=== PATIENT | female | born 2000 | race Caucasian/White ===

== ENCOUNTER 2023-12-05 00:09 | Inpatient (IN) | payer OTHER, SELFPAY ==
[2023-12-05] VITALS (12 sets, daily range): BP systolic 93–117; BP diastolic 40–60; PULSE 57–100; RESP 16–20; TEMP 36.2–37.2; O2SAT 97–100; BMI 24.0; BMI 25.5
--- NOTE | ~2023-12-05 | CT_ITS ---
EXAMINATION: CT ABDOMEN AND PELVIS WITH CONTRAST CLINICAL INFORMATION: Right lower quadrant pain. COMPARISON: None available. TECHNIQUE: Multidetector volumetric images were obtained from the superior aspect of the liver through the pubic symphysis following administration 85 mL of Omnipaque 350 intravenous contrast. Sagittal and coronal reformatted images were obtained on the technologist's workstation. Oral contrast: No This CT examination was performed using dose optimization techniques as appropriate, variously including the following: *Automated exposure control *Adjustment of mA and/or kV according to patient size (this includes techniques or standardized protocols for targeted exams where dose is matched to indication/reason for exam; i.e. extremities or head) *Use of iterative reconstruction technique DLP: 346.33 mGy-cm FINDINGS: LUNG BASES: The visualized lung bases are unremarkable. LIVER, GALLBLADDER, AND BILIARY TREE: The liver is normal in size, shape, and attenuation. No focal hepatic lesion or biliary ductal dilatation is present. The gallbladder is unremarkable with no evidence of radiopaque gallstones, gallbladder wall thickening, or obvious pericholecystic inflammatory changes. PANCREAS: Unremarkable. SPLEEN: Unremarkable. ADRENAL GLANDS: Unremarkable. KIDNEYS AND URETERS: The kidneys are normal in size, shape, and attenuation. No hydronephrosis, hydroureter, or calculi seen. No perinephric stranding. BLADDER: Unremarkable. GASTROINTESTINAL TRACT: The small and large bowel are unremarkable. There is a dilated thickened retrocecal appendix measuring up to 9 mm with mild surrounding infiltration. ABDOMINAL WALL: No significant hernia is appreciated. LYMPH NODES: Normal. VASCULAR: Unremarkable. PELVIC VISCERA: The uterus and adnexal regions are within normal limits. There is a small amount of free fluid within the pelvis. OSSEOUS STRUCTURES: Unremarkable. CT/CT abdomen pelvis w IV con IMPRESSION: Acute appendicitis. Small amount of free fluid within the pelvis. Fleischner guidelines were followed.
[2023-12-05 00:40] LABS: MANUAL DIFF FLAG NO
[2023-12-05 00:42] LABS: Basophils Absolute Auto 0.1 X10*3/uL (0.0-0.2); Basophils Percent Auto 0.3 % (0-2); Eosinophils Percent Auto 0.1 % (0-4); Hemoglobin 14.5 g/dl (12.0-16.0); Imm Gran Abs Auto 0.05 X10*3/uL (0.00-0.03); Imm Gran Pct Auto 0.3 % (0.0-0.4); Lymphocytes Absolute Auto 1.5 X10*3/uL (1.2-4.9); Lymphocytes Percent Auto 8.4 % (20-40); Mean Corpuscular HGB Conc 35.4 g/dl (31.0-35.0); Mean Corpuscular Hemoglobin 30.8 pg (27.0-33.0); Mean Platelet Volume 10.7 fL (9.4-12.3); Monocytes Percent Auto 5.2 % (2-11); Neutrophils Absolute Auto 15.6 x10*3/uL (2.0-8.3); Neutrophils Percent Auto 85.7 % (45-73); Platelet Count 303 X10*3/uL (160-400); Red Blood Count 4.71 X10*6/uL (4.20-5.50); Red Cell Distribution Width 12.3 % (11.0-16.0); White Blood Count 18.2 X10*3/uL (4.8-10.8)
[2023-12-05 01:01] LABS: Alanine Aminotransferase 11 U/L (0-31); Albumin Level 4.2 g/dL (3.5-5.0); Alkaline Phosphatase 58 U/L (39-117); Anion Gap 16 (12-20); Aspartate Amino Transferase 17 U/L (5-31); Bilirubin Direct 0.2 mg/dL (0.0-0.5); Bilirubin Total 0.6 mg/dL (0.0-1.0); Blood Urea Nitrogen 9 mg/dL (9-16); Calcium 9.9 mg/dL (8.4-10.2); Carbon Dioxide 20 mmol/L (22-29); Chloride 106 mmol/L (96-108); Creatinine Clr Calc Pharmacy 90.1; Estimated Glomerular Filt Rate > 60; Glucose Random 145 mg/dL (60-115); HCG Quantitative 3 mIU/mL; Lipase 19 U/L (8-78); Sodium 138 mmol/L (135-145); Total Protein 7.5 g/dL (6.5-8.0)
--- NOTE | 2023-12-05 01:06 | ED_ITS ---
HPI - Abdominal Pain General Chief Complaint: Abdominal Pain Stated Complaint: appendisitis? Time Seen by Provider: 12/05/23 01:01 Source: patient Mode of arrival: ambulatory Limitations: no limitations History of Present Illness HPI narrative: Patient comes to the emergency room complaining of right lower quadrant pain, nausea and vomiting for 8 hours. Patient denies fever chills. Related Data Allergies Allergy/AdvReac Type Severity Reaction Status Date / Time No Known Allergies Allergy Verified 12/05/23 00:33 Review of Systems Review of Systems Constitutional : No Weight loss, No Fever, No Chills, No Night Sweats, No Fatigue, No Malaise ENT/Mouth : No Hearing loss, No Ear Pain, No Nasal Congestion, No Sinus Pain, No Hoarseness, No sore throat, No Rhinorrhea, No Swallowing Difficulty Eyes: No Eye Pain, No Swelling, No Redness, No Foreign Body, No Discharge, No Vision Changes Cardiovascular : No Chest Pain, No SOB, No Dyspnea on Exertion, No Orthopnea, No Edema, No Palpitations Respiratory : No Cough, No Sputum, No Wheezing, No Smoke Exposure, No Dyspnea Gastrointestinal : Complaining of nausea, vomiting, no diarrhea or constipation, complaining of right lower quadrant pain Genitourinary : no irregular bleeding, No Dysuria, No Urinary Frequency, No Hematuria, No Urinary Incontinence, No Urgency, No Flank Pain, No Urinary Flow Changes, No Hesitancy Musculoskeletal : No joint pain, No Myalgias, No Joint Swelling Skin : No Skin Lesions, No rash Neuro : No Weakness, No Numbness, No Paresthesias, No Loss of Consciousness, No Dizziness, No Headache Psych : No Anxiety/Panic, No Depression, No SI/HI/AH/VH, No Social Issues, Heme/Lymph: No Bruising, No Bleeding,No Lymphadenopathy Endocrine : No Polyuria, No Polydipsia, No Temperature Intolerance [facility] Social History Social History Advance Directives: No Advance Directives Information Provided: No Do you have a plan to hurt others: No Plan Physical Exam ED Vital Signs: Vital Signs - 24 hr 12/05/23 00:31 12/05/23 02:57 Temperature 97.8 F 98.6 F Pulse Rate 100 79 Respiratory Rate 18 16 Blood Pressure 117/47 L 106/44 L Pulse Oximetry 100 100 Oxygen Delivery Method Room Air Room Air BMI result Body Mass Index 24.0 Const Other: Appearance: Alert. Oriented X3. No acute distress. Eyes: Pupils equal, round and reactive to light. ENT: Pharynx normal. Neck: Normal inspection. Neck supple. No lymph nodes noted. No crepitus CVS: Normal heart rate and rhythm. Pulses normal. Normal S1 and S2 Respiratory: No respiratory distress. Breath sounds normal. No Wheezing. No rales Abdomen: Complaining of right lower quadrant pain and periumbilical pain with palpation, no rebound or guarding Skin: Skin warm and dry. Normal skin color. Normal skin turgor. Extremities: No lower extremity edema. No Lacerations. No Rash Neuro: Oriented X 3. No motor deficit. No sensory deficit. Moving all extremities. No slurred speech. CN 2 through 12 grossly intact Psych: calm, cooperative, normal affect Course Course Course Narrative: -patient receiving IV fluids, ketorolac and Zofran IV, CT scan pending, urinalysis pending Medical Decision Making Medical Decision Making MDM Narrative: -my interpretation of hematology, white blood cell count 18.2., chemistry within normal limits, LFTs within normal limits, lipase 19, beta hCG 3 -my interpretation of CT, fecalith present in appendix, likely appendicitis CT report: confirmed acute appendicitis I dicussed with Dr. Luque, pt being admitted Differential Diagnosis Differential Diagnoses: The differential diagnosis associated with the presentation includes (Appendicitis, ovarian cyst, ovarian torsion) Admission/Observation Consideration of admission/observation: Escalation of care including admission/observation considered Consult Healthcare Provider Management of the patient was discussed with: Hosiery Mender Lab Data [facility] Lab Attestation statement: I reviewed the patient's lab results. 12/05/23 00:36 12/05/23 00:36 Labs: Lab Results 12/05/23 12/05/23 Range/Units 00:36 02:53 WBC 18.2 H (4.8-10.8) X10*3/uL RBC 4.71 (4.20-5.50) X10*6/uL Hgb 14.5 (12.0-16.0) g/dl Hct 41.0 (37.0-47.0) % MCV 87.0 (80.0-98.0) fL MCH 30.8 (27.0-33.0) pg MCHC 35.4 H (31.0-35.0) g/dl RDW 12.3 (11.0-16.0) % Plt Count 303 (160-400) X10*3/uL MPV 10.7 (9.4-12.3) fL Immature Gran % (Auto) 0.3 (0.0-0.4) % Neut % (Auto) 85.7 H (45-73) % Lymph % (Auto) 8.4 L (20-40) % [place] % (Auto) 5.2 (2-11) % Eos % (Auto) 0.1 (0-4) % Baso % (Auto) 0.3 (0-2) % Lymph # (Auto) 1.5 (1.2-4.9) X10*3/uL [place] # (Auto) 1.0 (0.1-1.2) X10*3/uL Eos # (Auto) 0.0 (0.0-0.4) X10*3/uL Baso # (Auto) 0.1 (0.0-0.2) X10*3/uL Abs Immat Gran (auto) 0.05 H (0.00-0.03) X10*3/uL Absolute Neuts (auto) 15.6 H (2.0-8.3) x10*3/uL Absolute Nucleated RBC 0.000 (0.0-0.012) X10*3/uL Nucleated RBC % (auto) 0.0 (0.0-0.2) /100WBC Sodium 138 (135-145) mmol/L Potassium 4.0 (3.3-5.1) mmol/L Chloride 106 (96-108) mmol/L Carbon Dioxide 20 L (22-29) mmol/L Anion Gap 16 (12-20) BUN 9 (9-16) mg/dL Creatinine 0.74 (0.5-1.4) mg/dL Estim Creat Clear Calc 90.1 Estimated GFR > 60 Random Glucose 145 H (60-115) mg/dL Calcium 9.9 (8.4-10.2) mg/dL Total Bilirubin 0.6 (0.0-1.0) mg/dL Direct Bilirubin 0.2 (0.0-0.5) mg/dL AST 17 (5-31) U/L ALT 11 (0-31) U/L Alkaline Phosphatase 58 (39-117) U/L Total Protein 7.5 (6.5-8.0) g/dL Albumin 4.2 (3.5-5.0) g/dL Lipase 19 (8-78) U/L Beta HCG, Quant 3 mIU/mL Urine Color Yellow Urine Appearance Clear Urine pH >= 9.0 (5.0-9.0) Ur Specific [place] >= 1.030 H (1.005-1.025) Urine Protein Negative (Neg-Trace) mg/dL Urine Glucose (UA) Negative (Negative) mg/dL Urine Ketones 15 (Negative) mg/dL Urine Blood Negative (Negative) Urine Nitrite Negative (Negative) Ur Leukocyte Esterase Negative (Negative) Independent Interpretation I performed an independent interpretation of an: CT Scan Radiology Impression Discussion of test interpretation with radiology: I have reviewed the radiologist's reading. Radiologist Impression: FINDINGS: LUNG BASES: The visualized lung bases are unremarkable. LIVER, GALLBLADDER, AND BILIARY TREE: The liver is normal in size, shape, and attenuation. No focal hepatic lesion or biliary ductal dilatation is present. The gallbladder is unremarkable with no evidence of radiopaque gallstones, gallbladder wall thickening, or obvious pericholecystic inflammatory changes. PANCREAS: Unremarkable. SPLEEN: Unremarkable. ADRENAL GLANDS: Unremarkable. KIDNEYS AND URETERS: The kidneys are normal in size, shape, and attenuation. No hydronephrosis, hydroureter, or calculi seen. No perinephric stranding. BLADDER: Unremarkable. GASTROINTESTINAL TRACT: The small and large bowel are unremarkable. There is a dilated thickened retrocecal appendix measuring up to 9 mm with mild surrounding infiltration. ABDOMINAL WALL: No significant hernia is appreciated. LYMPH NODES: Normal. VASCULAR: Unremarkable. PELVIC VISCERA: The uterus and adnexal regions are within normal limits. There is a small amount of free fluid within the pelvis. OSSEOUS STRUCTURES: Unremarkable. CT/CT abdomen pelvis w IV con IMPRESSION: Acute appendicitis. Small amount of free fluid within the pelvis. Fleischner guidelines were followed. Medications Administered Discontinued Medications Generic Name Dose Route Start Last Admin Trade Name Freq PRN Reason Stop Dose Admin Sodium Chloride 1,000 mls @ 999 mls/hr 12/05/23 01:05 12/05/23 04:11 Ns IVCONT 12/05/23 02:05 Infused .Q1H1M ONE Infusion Iohexol 85 ml 12/05/23 02:25 12/05/23 02:26 Iohexol 350 Mg/Ml 100 Ml Infus..Btl IV 12/05/23 02:26 85 ml ONCE ONE Administration Ketorolac Tromethamine 30 mg 12/05/23 01:05 12/05/23 01:33 Ketorolac Tromethamine 30 Mg/Ml Vial IVPUSH 12/05/23 01:06 30 mg ONCE ONE Administration Ondansetron HCl 4 mg 12/05/23 01:05 12/05/23 01:33 Ondansetron Hcl 4 Mg/2 Ml Vial IVPUSH 12/05/23 01:06 4 mg ONCE ONE Administration Critical Care Time Critical Care Time Critical Care Time: Yes Total Critical Care Time: 60 Attestation: I have personally provided critical care time. Time includes review of lab data, radiology results, discussion with consultants, and monitoring for potential decompensation. Intervention performed as documented. Discharge Plan Discharge Clinical Impression: Acute appendicitis Patient Disposition: Admitted As Inpatient Print Language: Citizen [place]
[2023-12-05] MEDS: ondansetron HCL 4 MG/2 ML VIAL IVPUSH ×2 (01:33→12:08)
[2023-12-05] MEDS: 0.9 % Sodium Chloride 1,000 ML 999 ML IVCONT (01:33)
[2023-12-05] MEDS: Ketorolac Tromethamine 30 MG/ML VIAL IVPUSH (01:33)
[2023-12-05] MEDS: iohexoL 350 MG/ML 100 ML INFUS..BTL 85 ML IV (02:26)
[2023-12-05 03:02] LABS: Appearance Urine Clear; Color Urine Yellow; Glucose Urine UA Negative (Negative); Leukocyte Esterase Urine Negative (Negative); Nitrite Urine Negative (Negative); PH >= 9.0 (5.0-9.0); Specific Gravity - Urine >= 1.030 (1.005-1.025); Urine Blood Negative (Negative); Urine Ketones 15 mg/dL (Negative); Urine Protein Negative (Neg-Trace)
--- NOTE | 2023-12-05 05:10 | PC.NURSE ---
this RN resumed care of pt at this time. a&ox4. pt currently resting comfortably in bed in no apparent distress w/ the lights dimmed. pt verbalizing 2/10 RLQ abd pain. denies feeling nauseous at this time but states multiple episodes of n/v/d x 1999 last night. no sob/wob noted. respirations even and unlabored. partner bedside for support. pending admission at this time. plan of care ongoing. call bolivar placed within reach.
[2023-12-05] MEDS: Piperacillin Sodium/Tazobactam 3.375 GM in 0.9 % Sodium Chloride 50 ML IV (05:23)
--- NOTE | 2023-12-05 05:47 | PM.HPGS ---
History of Present Illness History of Present Illness Date of Service: 12/05/23 Chief complaint: acute appendicitis Narrative: Jessica Castellano is a 23 year old female presenting with complaints of abdominal cramping starting at around 08:00 o'clock yesterday evening. She initially felt she needed to have a bowel movement however the pain did not improve after the bowel movement. She also reported nausea and vomiting along with the pain. The pain increased in severity and she subsequently presented to the emergency department for further evaluation. The pain seems to increase with movement and is decreased when lying still. She reported fever and chills as well. Denies a previous episode of similar pain. Workup in the emergency department revealed a WBC of 18.2. Subsequent CT abdomen and pelvis confirmed a thickened appendix with surrounding fluid suggestive of acute appendicitis. She is admitted to the surgical service for further management. Review of Systems Review of Systems: Yes all other systems are reviewed and are negative Constitutional: Constitutional: Reports chills, Reports fever(s), Denies headache(s), Denies poor appetite and Denies weakness ENT: Denies headache(s) Cardiovascular: Cardiovascular: Denies chest pain, Denies irregular heart rhythm, Denies palpitations and Denies dyspnea Respiratory: Respiratory: Denies cough, Denies excessive phlegm production and Denies dyspnea Gastrointestinal: Gastrointestinal: Reports abdominal pain, Denies bloating, Denies change in bowel habits, Denies constipation, Denies heartburn, Denies diarrhea, Reports nausea and Reports vomiting Genitourinary: Genitourinary: Denies urinary frequency Musculoskeletal: Musculoskeletal: Denies back pain, Denies muscle weakness and Denies numbness Integumentary/Breasts: Skin/Breast: Denies changing lesions and Denies unusual bruising Neurologic: Denies headache(s), Denies numbness, Denies paresthesias and Denies weakness Psychiatric: Psychiatric: Denies anxiety and Denies depression Endocrine: Endocrine: Denies palpitations Hematologic/Lymphatic: Hematologic/Lymphatic: Denies lymphadenopathy [facility] Social History Social History Patient Tobacco Use Status: Never used Tobacco Smoked in Last 30 Days: No Use of substances other than those prescribed or required for medical reasons: Yes Substance Use Type: Marijuana Advance Directives: No Advance Directives Information Provided: No Do you have a plan to hurt others: No Plan Nutrition Risks: No Nutritional Risk Patient : No Meds Allergies Allergy/AdvReac Type Severity Reaction Status Date / Time No Known Allergies Allergy Verified 12/05/23 00:33 Active Medications: Current Medications Hydromorphone HCl (Hydromorphone Hcl 0.5 Mg/0.5 Ml Syringe) 0.5 mg IVPUSH Q3H PRN; Protocol PRN Reason: Pain, Severe (Pain Scale 7-10) Acetaminophen (Ofirmev) 1,000 mg in 100 mls @ 400 mls/hr IV Q6H CONSTANTINO Stop: 12/05/23 23:59 Dextrose/Lactated Ringer's (D5lr) 1,000 mls @ 125 mls/hr IVCONT .Q8H CONSTANTINO Cefotetan Disodium 2 gm/ (Sodium Chloride) 50 mls @ 100 mls/hr IV PREOP ONE Stop: 12/05/23 06:12 Ondansetron HCl (Ondansetron Hcl 4 Mg/2 Ml Vial) 4 mg IVPUSH QID PRN PRN Reason: Nausea Physical Exam Vital Signs: Vital Signs: Last Vital Signs Temp 98.9 F 12/05/23 05:44 Pulse 85 12/05/23 05:44 Resp 16 12/05/23 05:44 BP 115/60 12/05/23 05:44 Pulse Ox 100 12/05/23 05:44 O2 Del Method Room Air 12/05/23 05:44 BMI result Body Mass Index 24.0 Const: General: cooperative and no acute distress Nutritional Appearance: well nourished Orientation/consciousness: patient oriented x3 Limitations: no limitations HEENT: Head: Yes normocephalic and Yes atraumatic Ears: hearing grossly normal bilaterally Resp: Effort & Inspection: normal respiratory effort, no audible wheezes, no cough and no respiratory distress Cardio: Jugular venous distension: no JVD GI: Inspection: Yes normal to inspection Palpation (GI): Soft to palpation, Tenderness to palpation present (GI) in the RLQ, at McBurney's point and Rovsing's sign positive, no guarding, not rigid and no masses Percussion: Yes normal to percussion Auscultation: normal bowel sounds Rectal Exam - Female: deferred Skin: Other: Warm, dry, no rash Neuro: General: patient oriented x3 Extrem: General: Yes no clubbing, cyanosis or edema Results Results Labs: Short CBC 12/05/23 Range/Units 00:36 WBC 18.2 H (4.8-10.8) X10*3/uL Hgb 14.5 (12.0-16.0) g/dl Hct 41.0 (37.0-47.0) % Plt Count 303 (160-400) X10*3/uL BMP 12/05/23 00:36 Sodium 138 Potassium 4.0 Chloride 106 Carbon Dioxide 20 L BUN 9 Creatinine 0.74 Calcium 9.9 Liver Function 12/05/23 Range/Units 00:36 Total Bilirubin 0.6 (0.0-1.0) mg/dL Direct Bilirubin 0.2 (0.0-0.5) mg/dL AST 17 (5-31) U/L ALT 11 (0-31) U/L Alkaline Phosphatase 58 (39-117) U/L Albumin 4.2 (3.5-5.0) g/dL Urine 12/05/23 Range/Units 02:53 Urine Color Yellow Urine Appearance Clear Urine pH >= 9.0 (5.0-9.0) Ur Specific [place] >= 1.030 H (1.005-1.025) Urine Protein Negative (Neg-Trace) mg/dL Urine Glucose (UA) Negative (Negative) mg/dL Assessment and Plan (1) Acute appendicitis: Qualifiers: Acute appendicitis type: with localized peritonitis Appendicitis gangrene presence: without gangrene Appendicitis perforation presence: without perforation Appendicitis abscess presence: without abscess Qualified Code(s): K35.30 - Acute appendicitis with localized peritonitis, without perforation or gangrene Status: Acute Plan 23-year-old female patient presenting with a sudden onset of abdominal pain located in the right lower quadrant associated with nausea, vomiting, fever and chills. The pain is now mainly located in the right lower quadrant with a positive Rovsing sign. Workup with laboratories revealed an elevated WBC. CT confirms changes consistent with acute appendicitis. I recommended a laparoscopic or possible open appendectomy. After discussion of the procedure, risks, and alternatives, she consents to the surgery. She has been added onto the operative schedule for this morning. Quality Stroke Does the patient have a stroke diagnosis?: No VTE Prior VTE?: No VTE Risk Level:: Surgical - low VTE Device Contraindication: N/A - Device Ordered VTE Drug Contraindication: Treatment Not Indicated Procedures Date of Service Date of Service: 12/05/23
[2023-12-05] MEDS: Acetaminophen 1,000 MG/100 ML PIGGYBACK 400 MG IV ×4 (06:00→23:53)
[2023-12-05] MEDS: Dextrose 5 % and Lactated Ring 1,000 ML 125 ML IVCONT ×3 (06:18→20:18)
--- NOTE | 2023-12-05 07:31 | PC.NURSE ---
general surgery consult being completed at this time.
--- NOTE | 2023-12-05 08:29 | P.CONAN_ITS ---
[facility] Active Problems Active Problems: All Active Problems Acute appendicitis (Acute) Past Medical History Functional capacity: independent ambulation Patient : No Family History Family history of problems with anesthesia: No Surgical History History of Problems with Anesthesia: No Social History Social History Patient Tobacco Use Status: Never used Tobacco Smoked in Last 30 Days: No Use of substances other than those prescribed or required for medical reasons: Yes Substance Use Type: Marijuana Advance Directives: No Advance Directives Information Provided: No Do you have a plan to hurt others: No Plan Nutrition Risks: No Nutritional Risk Patient : No Meds Allergies Allergy/AdvReac Type Severity Reaction Status Date / Time No Known Allergies Allergy Verified 12/05/23 00:33 Active Medications: Current Medications Hydromorphone HCl (Hydromorphone Hcl 0.5 Mg/0.5 Ml Syringe) 0.5 mg IVPUSH Q3H PRN; Protocol PRN Reason: Pain, Severe (Pain Scale 7-10) Acetaminophen (Ofirmev) 1,000 mg in 100 mls @ 400 mls/hr IV Q6H CONSTANTINO Stop: 12/05/23 23:59 Last Infusion: 12/05/23 06:18 Dose: Infused Dextrose/Lactated Ringer's (D5lr) 1,000 mls @ 125 mls/hr IVCONT .Q8H CONSTANTINO Last Admin: 12/05/23 06:18 Dose: 125 mls/hr Ondansetron HCl (Ondansetron Hcl 4 Mg/2 Ml Vial) 4 mg IVPUSH QID PRN PRN Reason: Nausea Exam Height,Weight and Vital Signs: Height 4 ft 11 in Weight 53.9 kg Last Vital Signs Temp 98.9 F 12/05/23 05:44 Pulse 85 12/05/23 05:44 Resp 16 12/05/23 05:44 BP 115/60 12/05/23 05:44 Pulse Ox 100 12/05/23 05:44 O2 Del Method Room Air 12/05/23 05:44 Pertinent Lab Results Pertinent Lab Results: Laboratory Tests 12/05/23 12/05/23 00:36 02:53 WBC 18.2 H RBC 4.71 Hgb 14.5 Hct 41.0 MCV 87.0 MCH 30.8 MCHC 35.4 H RDW 12.3 Plt Count 303 MPV 10.7 Immature Gran % (Auto) 0.3 Neut % (Auto) 85.7 H Lymph % (Auto) 8.4 L [place] % (Auto) 5.2 Eos % (Auto) 0.1 Baso % (Auto) 0.3 Lymph # (Auto) 1.5 [place] # (Auto) 1.0 Eos # (Auto) 0.0 Baso # (Auto) 0.1 Abs Immat Gran (auto) 0.05 H Absolute Neuts (auto) 15.6 H Absolute Nucleated RBC 0.000 Nucleated RBC % (auto) 0.0 Sodium 138 Potassium 4.0 Chloride 106 Carbon Dioxide 20 L Anion Gap 16 BUN 9 Creatinine 0.74 Estim Creat Clear Calc 90.1 Estimated GFR > 60 Random Glucose 145 H Calcium 9.9 Total Bilirubin 0.6 Direct Bilirubin 0.2 AST 17 ALT 11 Alkaline Phosphatase 58 Total Protein 7.5 Albumin 4.2 Lipase 19 Beta HCG, Quant 3 Urine Color Yellow Urine Appearance Clear Urine pH >= 9.0 Ur Specific [place] >= 1.030 H Urine Protein Negative Urine Glucose (UA) Negative Urine Ketones 15 Urine Blood Negative Urine Nitrite Negative Ur Leukocyte Esterase Negative Airway Mallampati Class: II TM Dist: >3cm Neck ROM: Full Heart: RRR Lungs: CTA Assessment and Plan Assessment Anesthesia Assessment: Anesthesia Plan Discussed Final Anesthetic Review Family History of Problems with Anesthesia: No History of Problems with Anesthesia: No ASA Class: II and Emergency Final Preanesthetic Review: Meds/Allgs Chart Reviewed, Consent Obtained/Reviewed and Anes Risks/Benef Reviewed Patient Risk: Low Procedure Risk: Low Anesthetic Plan Anesthetic Plan: GA Disposition: Standard PACU
--- NOTE | 2023-12-05 08:39 | PC.NURSE ---
REPORT WAS GIVEN TO THE CARE ANALYST FOR TRANSFER FOR SURGERY, PT REPORTS LAST MEAL WAS YEST AM, ANESTHESIOLOGIST WAS AT THE BEDSIDE. PT LEFT THE ED
--- NOTE | 2023-12-05 09:05 | PHA.MEDREC ---
Pharmacy Consult ? Medication Reconciliation Pharmacy has completed the medication reconciliation. spoke with patient to confirm medication. Patient showed me a picture on her phone of the control ingredients and reports that her last dose was Wednesday night.
--- NOTE | 2023-12-05 09:54 | P.OP_ITS ---
Operative Note Operative Note Date of Service: 12/05/23 Narrative: Preoperative diagnosis: Acute appendicitis Postoperative diagnosis: Same Procedure: Laparoscopic appendectomy Surgeon: Saravanan Luque MD Side Door Man: none Anesthesia: General endotracheal Indications for procedure: 23-year-old female patient presenting with complaints of abdominal pain associated with nausea and vomiting, fever and chills found on workup to have an elevated WBC and CT findings suggestive of acute appendicitis. On examination the patient is tender mainly in the right lower quadrant over McBurney's point. Operative findings: Retrocecal appendix with inflammation at the tip suggestive of acute appendicitis. No evidence of perforation. Specimen: Appendix Estimated blood loss: Less than 2 mL Complications: None Procedure details: Patient was brought to the OR and placed in a supine position. After administering general anesthesia the patient's abdomen was prepped with ChloraPrep and draped in a sterile fashion. A surgical time-out was called and consent confirmed. Patient received preoperative antibiotics and Venodyne boots were in place. Local anesthesia consisting of 0.75% Sensorcaine with epinephrine was infiltrated in periumbilical region. A 5 mm incision was made below the umbilicus and carried down through subcutaneous tissue. A Veress needle was then inserted while elevating abdominal cavity with towel clips. After a positive drop test the abdomen was insufflated to a pressure of 15 mm of mercury. The Veress needle was removed and a 5 mm trocar inserted. The camera was then inserted in the abdomen explored. A 2nd 5 mm trocars placed in the low er midline. A 12 mm trocar was then placed in the left lower quadrant. The patient was then placed in a Trendelenburg position and rotated to the left. The appendix was identified in the right lower quadrant and brought up using blunt dissecting clamps. The mesentery of the appendix was then divided using the LigaSure. The appendiceal artery was cauterized and divided using the LigaSure. Dissection was continued down to the base of the cecum. An Endo-SANDRA stapler with a purple reload was then used to divide the appendix at the base with the cecum. The appendix was then placed in Endo-Catch bag and brought out through the left lower quadrant incision. The abdomen was then irrigated with saline solution and suctioned dry. Wounds were checked for hemostasis. CO2 was then evacuated from the abdominal cavity and all trocars removed. Fascia was closed in the left lower quadrant incision using a [id number] 0 Polysorb suture. Skin was closed at all incisions using a subcuticular 4-0 Polysorb suture. Steri-Strips 2 x 2 gauze and Tegaderm were then applied. The patient tolerated the procedure well. Sponge, instrument, needle counts reported as correct. The patient was transferred to PACU in stable condition.
--- NOTE | 2023-12-05 13:42 | PC.NURSE ---
Pt voided large amount of clear yellow urine s/p surgery.
--- NOTE | 2023-12-05 18:02 | PC.NURSE ---
no n/v after dinner
[2023-12-06 03:42] VITALS: BP 102/49; PULSE 81; RESP 19; TEMP 36.9; O2SAT 97
[2023-12-06] MEDS: Dextrose 5 % and Lactated Ring 1,000 ML 125 ML IVCONT (03:53)
[2023-12-06 06:48] VITALS: BP 110/57; PULSE 85; RESP 15; TEMP 36.1; O2SAT 99
--- NOTE | 2023-12-06 08:40 | P.PNGS_ITS ---
Subjective Subjective Date of Service: 12/06/23 <Meaghan Jha PA-C - Last Filed: 12/06/23 08:43> 12/06/23 <Saravanan Luque MD - Last Filed: 12/06/23 08:44> Interval history: Feels well this morning, minimal incisional pain. Tolerating solid diet. OOB to bathroom. Passing flatus. Wants to go home. <Meaghan Jha PA-C - Last Filed: 12/06/23 08:43> Physical Exam 2 Vital Signs: Vital Signs: Last Vital Signs Temp 97 F 12/06/23 06:48 Pulse 85 12/06/23 06:48 Resp 15 12/06/23 06:48 BP 110/57 L 12/06/23 06:48 Pulse Ox 99 12/06/23 06:48 O2 Del Method Room Air 12/06/23 06:48 O2 Flow Rate 2 12/05/23 10:34 BMI result Body Mass Index 25.5 <Meaghan Jha PA-C - Last Filed: 12/06/23 08:43> Const: General: comfortable, no acute distress and alert <Meaghan Jha PA-C - Last Filed: 12/06/23 08:43> Orientation/consciousness: patient oriented x3 <ALLIE Coto Last Filed: 12/06/23 08:43> Resp: Effort & Inspection: normal respiratory effort <Meaghan Jha PA-C - Last Filed: 12/06/23 08:43> GI: Inspection: No distended and Yes incision (dressings c/d/i) <Meaghan Jha PA-C - Last Filed: 12/06/23 08:43> Palpation (GI): Soft to palpation, Tenderness to palpation present (GI) (mild incisional) and no guarding <ALLIE Coto Last Filed: 12/06/23 08:43> Skin: General skin exam: no rashes or lesions noted <ALLIE Coto Last Filed: 12/06/23 08:43> Neuro: General: patient oriented x3 and moves all extremities <ALLIE Coto Last Filed: 12/06/23 08:43> Objective Data Active Medications Dextrose/Lactated Ringer's (D5lr) 1,000 mls @ 125 mls/hr IVCONT .Q8H CONSTANTINO Last Admin: 12/06/23 03:53 Dose: 125 mls/hr Documented By: DEBORA Ondansetron HCl (Ondansetron Hcl 4 Mg/2 Ml Vial) 4 mg IVPUSH QID PRN PRN Reason: Nausea Last Admin: 12/05/23 12:08 Dose: 4 mg Documented By: ZAIN Oxycodone HCl (Oxycodone Hcl Immed Release 5 Mg Tablet) 5 mg PO Q6H PRN PRN Reason: Pain, Moderate(Pain Scale 4-6) <Meaghan Jha PA-C - Last Filed: 12/06/23 08:43> Labs CBC & Chem 7: 12/05/23 00:36 12/05/23 00:36 <Meaghan Jha PA-C - Last Filed: 12/06/23 08:43> Procedures Date of Service Date of Service: 12/06/23 <Meaghan Jha PA-C - Last Filed: 12/06/23 08:43> 12/06/23 <Saravanan Luque MD - Last Filed: 12/06/23 08:44> Progress Note: A&P Assessment and plan (1) Acute appendicitis: Status: Acute <ALLIE Coto Last Filed: 12/06/23 08:43> (2) S/P laparoscopic appendectomy: Status: Acute <ALLIE Coto Last Filed: 12/06/23 08:43> Assessment and Plan: POD #1 s/p lap appy. Doing well post op with good pain control, tolerating solid diet. VSS. Abd exam benign with appropriate post op tenderness, dressings c/d/i. Stable for dc to home today. F/u in office in 1 week. Patient comfortable with plan. <ALLIE Coto Last Filed: 12/06/23 08:43> Time Spent With Patient Time: Total time managing care of this patient today ____ minutes. <Meaghan Jha PA-C - Last Filed: 12/06/23 08:43> Quality Stroke Does the patient have a stroke diagnosis?: No <Meaghan Jha PA-C - Last Filed: 12/06/23 08:43> VTE Prior VTE?: No <Meaghan Jha PA-C - Last Filed: 12/06/23 08:43> VTE Risk Level:: Surgical - low <Meaghan Jha PA-C - Last Filed: 12/06/23 08:43> VTE Device Contraindication: N/A - Device Ordered <Meaghan Jha PA-C - Last Filed: 12/06/23 08:43> VTE Drug Contraindication: Treatment Not Indicated <Meaghan Jha PA-C - Last Filed: 12/06/23 08:43>
--- NOTE | 2023-12-06 09:48 | MHC.CM.PN ---
pt dcd home self care pt dcd prior to being seen by cm
--- NOTE | 2023-12-06 10:18 | HO.POSTANES ---
Post Anesthesia Evaluation Post Anesthesia Evaluation Date of Service: 12/06/23 Vital Signs: Vital Signs Temp Pulse Resp BP Pulse Ox O2 Del Method 12/06/23 06:48 97 F 85 15 110/57 L 99 Room Air 12/06/23 03:42 98.5 F 81 19 102/49 L 97 Room Air Comments: Pt already discharged home for post-op visit. No reported anesthetic-related complications.
--- NOTE | 2023-12-06 11:53 | PM.DS ---
DS: Providers Provider Date of Service: 12/06/23 Date of admission: 12/05/23 05:44 Date of discharge: 12/06/23 Primary care physician: Unknown Physician Attending physician on admission: Saravanan Luque Attending physician on discharge: Saravanan Luque DS: Diagnosis Discharge Diagnosis (1) Acute appendicitis: Status: Acute (2) S/P laparoscopic appendectomy: Status: Acute DS: Summary Hospital Course Hospital Course: HPI AT ADMISSION: Jessica Castellano is a 23 year old female presenting with complaints of abdominal cramping starting at around 08:00 o'clock yesterday evening. She initially felt she needed to have a bowel movement however the pain did not improve after the bowel movement. She also reported nausea and vomiting along with the pain. The pain increased in severity and she subsequently presented to the emergency department for further evaluation. The pain seems to increase with movement and is decreased when lying still. She reported fever and chills as well. Denies a previous episode of similar pain. Workup in the emergency department revealed a WBC of 18.2. Subsequent CT abdomen and pelvis confirmed a thickened appendix with surrounding fluid suggestive of acute appendicitis. HOSPITAL COURSE: She was admitted to the surgical service for further management of acute appendicitis. On 12/05/23, laparoscopic appendectomy was performed by Dr. Luque without complication. The patient tolerated the procedure well. She had an uncomplicated recovery course. She was doing well on POD #1 and was tolerating a solid diet without nausea or vomiting, had good pain control on oral analgesics and was ambulating without difficulty. Her abdomen was benign with appropriate post op tenderness and clean/intact dressings. She felt ready for discharge. She was discharged to home on 12/06/23 in stable condition. Time Attestation Discharge Coordination Time (in mins): 30 Quality: Safe Use of Opioids Does Pt have an Active Cancer Diagnosis on the Problem List?: No Quality: Stroke Does the patient have a stroke diagnosis?: No Physical Exam Vital Signs: Vital Signs: Last Vital Signs Temp 97 F 12/06/23 06:48 Pulse 85 12/06/23 06:48 Resp 15 12/06/23 06:48 BP 110/57 L 12/06/23 06:48 Pulse Ox 99 12/06/23 06:48 O2 Del Method Room Air 12/06/23 06:48 O2 Flow Rate 2 12/05/23 10:34 BMI result Body Mass Index 25.5 Const: General: comfortable, no acute distress and alert Orientation/consciousness: patient oriented x3 Resp: Effort & Inspection: normal respiratory effort GI: Inspection: No distended and Yes incision (dressings c/d/i) Palpation (GI): Soft to palpation, Tenderness to palpation present (GI) (mild incisional) and no guarding Skin: General skin exam: no rashes or lesions noted Neuro: General: patient oriented x3 and moves all extremities DS: Data Data Completed and Pending Pending studies at discharge: Pending at discharge 12/05/23 09:24 Surgical [PTH] Routine Discharge Plan Discharge Anticipated Discharge Date/Time: 12/06/23 07:15 Patient Disposition: Home, Self-Care Discharge Diagnosis: acute appendicitis Referrals: Saravanan Luque MD [Physician] - 1 Week Physician,Kanwal Bruno [Primary Care Provider] - 1 Week Discharge Medications: New docusate sodium [Colace] 100 mg capsule 100 mg PO BID PRN (Reason: constipation) Qty: 30 0RF oxycodone 5 mg tablet 5 mg PO Q4H PRN (Reason: pain (scale score 7-10)) Qty: 24 0RF Rx Instructions: Partial Fill upon patient request. Continued norgestimate-ethinyl estradiol 0.25-35 mg-mcg Tablet 1 tab PO DAILY@2300 Discharge Orders: Discharge Order (Routine); Ordered 12/06/23 Ordered By: Meaghan Jha Diet: Advance to usual diet Activity on Discharge: No heavy lifting Stand Alone Forms: Patient Portal Discharge page, Work/School Release Print Language: [place] Activity Restrictions/Additional Instructions: If the incision area is tender, you may apply an ice pack for short intervals (No more than 20 minutes on, followed by at least 20 minutes off). Do not apply heat. Do not use creams, lotions, or topical antibiotics. Ok to shower. Remove clear dressings 3 days following your procedure. You have steri strips (small white cloth strips) covering your incision- these will fall off ~1 week. No heavy lifting (>10lbs) or strenuous activity! Take Tylenol Extra-strength 1-2 tabs every 6 hours for the first day, then as needed. Oxycodone every 6-8 hours as needed for pain. Colace 100 mg every day as needed for constipation. Follow up in office with Dr. Luque in 1 week. ([phone]) Call Your Doctor If: -Your temperature exceeds 101.5? F -You experience excessive pain or swelling -You have an unexpected reaction to medication -You have excessive bleeding -You experience continued vomiting/nausea -Your incision begins to separate -Your incision shows signs of infection such as increased redness, swelling, excessive pain, drainage (light blood or clear fluid is normal) or heat Care Plan Goals: Return to baseline health and resume normal activities following recovery period. Health Concerns: acute appendicitis Plan of Treatment: s/p laparoscopic appendectomy f/u in office in 1 week Assessment: Doing well post op Patient Instructions: Laparoscopic Appendectomy (DC), Laparoscopic Appendectomy (GEN) Discharge Date/Time: 12/06/23 09:08
== END 2023-12-06 09:08 | disposition home or self-care (01) | DRG 399 ==
LOC: HO.ED 04:40 → HO.EDOVER 05:52 → HO.S3 10:42
PROVIDERS: Admitting Provider Surgery; Emergency Provider Emergency Medicine; Visit Provider Surgery
PROC: 0DTJ4ZZ Resection of Appendix, Percutaneous Endoscopic Approach (ICD-10-PCS; CPT 44970; principal; 2023-12-05 09:00)
DX: K35.80 Unspecified acute appendicitis (principal)
CPT/HCPCS: 36415; 74177; 80048; 80076; 81003; 83690; 84702; 85025; 88304; 99285; J0131; J0665; J1100; J1170; J1885; J2250; J2405; J2543; J2704; J3010; Q9967

== ENCOUNTER → 2023-12-05 05:44 | Outpatient (BNV) | payer OTHER, SELFPAY | PROVIDERS: Admitting Provider Surgery; Emergency Provider Emergency Medicine; Visit Provider Surgery | DX: K35.30 Acute appendicitis with localized peritonitis, without perforation or gangrene (principal); Z90.49 Acquired absence of other specified parts of digestive tract | CPT/HCPCS: 44970; 99024; 99222 ==

== ENCOUNTER 2023-12-17 08:30 | Outpatient (AMB) | payer OTHER, SELFPAY ==
--- NOTE | 2023-12-17 08:54 | MHC.OFFVIS ---
Intake Visit Reasons: E.R F/U appendicitis Intake Note: Patient is seen in for post op assessment post laparoscopic appendectomy. Pt c/o: denies any concerns ER & CT: 12/05/23 Carpenter Rough Required: No Accompanied by: Mother Allergies No Known Allergies Allergy (Verified 12/17/23 08:55) HPI Comments Details: 23-year-old female patient returning following a recent laparoscopic appendectomy performed on 12/05/2023 for acute appendicitis. She was subsequently discharged to home in stable condition for 04/28/2024 returns today for wound check. She feels well and denies any current abdominal pain. She denies nausea, vomiting, fever chills, or bowel changes. [facility] Surgical History (Updated 12/17/23 @ 08:58 by MAGALY Blair) S/P laparoscopic appendectomy (12/05/23) Social History Household Members: Family Housing: House Do you presently have visiting nurse or other home services: No Patient Tobacco Use Status: Never used Tobacco Substance Use Type: Marijuana Physical Exam Const General: no acute distress Nutritional Appearance: well nourished Orientation/consciousness: patient oriented x3 Resp Effort & Inspection: normal respiratory effort, no audible wheezes, no cough and no respiratory distress GI Other: Well-healed trocar incisions Inspection: Yes normal to inspection Palpation (GI): Soft to palpation, nontender, no guarding and not rigid Neuro General: patient oriented x3 Assessment & Plan Assessment & Plan (1) Acute appendicitis: Code(s): K35.80 - Unspecified acute appendicitis Category: Medical Qualifiers: Acute appendicitis type: with localized peritonitis Appendicitis abscess presence: without abscess Appendicitis gangrene presence: without gangrene Appendicitis perforation presence: without perforation Qualified Code(s): K35.30 - Acute appendicitis with localized peritonitis, without perforation or gangrene (2) S/P laparoscopic appendectomy: Onset Date: 12/05/23 Comment: Saravanan Luque MD Code(s): Z90.49 - Acquired absence of other specified parts of digestive tract Category: Surgical Plan 23-year-old female status post laparoscopic appendectomy for acute appendicitis. She tolerated the procedure well and her wounds are healing nicely without evidence of infection. She should follow up as needed. I recommended no lifting greater than 10 lb for 1 more week. Coding Level of Care Code Global (27776) Diagnoses Acute appendicitis with localized peritonitis, without perforation, abscess, or gangrene K35.30 Acute appendicitis type: with localized peritonitis Appendicitis abscess presence: without abscess Appendicitis gangrene presence: without gangrene Appendicitis perforation presence: without perforation S/P laparoscopic appendectomy Z90.49
== END 2023-12-17 09:15 | disposition home or self-care (01) ==
PROVIDERS: Visit Provider Surgery
DX: K35.30 Acute appendicitis with localized peritonitis, without perforation or gangrene (principal); Z90.49 Acquired absence of other specified parts of digestive tract
CPT/HCPCS: 99024

== ENCOUNTER → 2023-12-17 08:30 | Outpatient (BNVA) | payer OTHER, SELFPAY | PROVIDERS: Visit Provider Surgery | DX: Z09 Encounter for follow-up examination after completed treatment for conditions other than malignant neoplasm (principal); Z90.49 Acquired absence of other specified parts of digestive tract | CPT/HCPCS: 99212 ==